=== PATIENT | male | born 1980 | race Caucasian/White ===

== ENCOUNTER 2016-12-14 16:06 | Emergency (ER) | payer SELFPAY ==
[~2016-12-14] VITALS: Ht 180.3 cm; Wt 113.4 kg
[2016-12-14 16:26] VITALS: BP 153/93
--- NOTE | 2016-12-14 17:56 | NUR ---
Patient ambulated to bed 03.
--- NOTE | 2016-12-14 18:40 | NUR ---
PATIENT PRESENTS TO ED WITH C/O SWELLING OF BILATERAL LOWER LEGS AND FOOT AND NUMBNESS SENSATION TO THE LEFT THIGH. DENIES N/V/D; SKIN IS PINK/WARM/DRY; AAOX4 LUNGS CLEAR BL; HR EVEN AND REGULAR; PT DENIES ANY FEVER, CP, SOB, OR COUGH AT THIS TIME; PATIENT STATES PAIN OF 7/10 AT THIS TIME; VSS; PATIENT POSITIONED FOR COMFORT; HOB ELEVATED; BEDRAILS UP X2; BED DOWN. ER MD MADE AWARE OF PT STATUS.
--- NOTE | 2016-12-14 19:18 | NUR ---
Patient being evaluated by physician at bedside.
--- NOTE | 2016-12-14 19:23 | NUR ---
Endorsed report to research development director RN at bedside for continuity of care.
--- NOTE | 2016-12-14 19:25 | NUR ---
RECEIVED REPORT FROM DAY NURSE BISHNU SERRA FOR TRANSFER OF CARE.
[2016-12-14] MEDS ORDERED: KETOROLAC 30 MG/ML VIAL IVP ONE (19:35)
--- NOTE | 2016-12-14 19:40 | NUR ---
PT REFUSED IV INSERTITION AND PAIN MED ADMNISTRATION AT THIS TIME. PT MADE AWARE OF THE IMPORTANCE. PT STILL REFUSES. PT STATES HE WOULD JUST LIKE TO HAVE HIS "BLOOD TESTS DONE AND BE OUT OF HERE SOON POSSIBLE." ER MADE AWARE AT THIS TIME.
--- NOTE | 2016-12-14 19:46 | NUR ---
Patient does not wish to proceed with medical care recommended by DR ROSA. Patient given information related to possible complications, up to and including , which could occur as a result of leaving hospital at this time. Patient verbalizes understanding of risks involved leaving against medical advice. Patient has signed AMA form. PT ALSO RECEIVED PRESCRIPTION FOR CLOTRIMAZOLE.
[2016-12-14 19:51] VITALS: BP 119/69
== END 2016-12-14 19:46 | disposition left against medical advice (07) ==
LOC: MED 16:06
DX: B35.3 Tinea pedis (principal); R60.0 Localized edema
CPT/HCPCS: 93005; 99283